=== PATIENT | male | born 1980 | race Caucasian/White ===

== ENCOUNTER 2023-02-08 12:52 | Outpatient (AMB) | payer MEDICAID, SELFPAY ==
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
[2023-02-08 12:59] VITALS: BP 132/74; PULSE 71; O2SAT 97; BMI 26.5
== END 2023-02-08 13:33 | disposition home or self-care (01) ==
PROVIDERS: Visit Provider Psychiatry & Neurology Neurology
DX: R42 Dizziness and giddiness (principal)
CPT/HCPCS: 99204

== ENCOUNTER → 2023-02-08 12:52 | Outpatient (BNVA) | payer MEDICAID, SELFPAY | PROVIDERS: Visit Provider Psychiatry & Neurology Neurology ==